=== PATIENT | female | born 1965 | race Caucasian/White ===

== ENCOUNTER 2017-01-17 09:45 | Inpatient (IN) ==
[2017-01-17] MEDS ORDERED: Albuterol 2.5 MG/3 ML NEBULIZER ONE (10:17)
[2017-01-17] MEDS ORDERED: CeFAZolin Pre 2,000 MG/100 ML 2,000 MG/100 ML BAG IVPB ONE (10:19)
[2017-01-17] MEDS ORDERED: Lidocaine -MPF 1% 2 ML VIAL ID ONE (10:19)
[2017-01-17] MEDS ORDERED: Albuterol 2.5 MG/3 ML NEBULIZER IH ONE (10:19)
[2017-01-17] MEDS ORDERED: Vancomycin 1,500 MG in D5% in Water 250 ML IVPB ONE (10:19)
[2017-01-17] MEDS ORDERED: Acetaminophen IV 1,000 MG/100 ML INFUS..BTL IVPB ONE (10:25)
[2017-01-17] MEDS ORDERED: Famotidine 20 MG/2 ML VIAL IVP ONE (10:25)
--- NOTE | 2017-01-17 10:29 | Anesthesia Evaluation PreOp ---
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 ( and ), Paresis (Left UE and LE weakness), Other (Multiple Sclerosis) Other Medical History: Denies Any Significant HX, Other (Obesity) Anesthesia History: No Prior Anesthetic Complications : No Alcohol Use: none Drug use: none Medications and Allergies Atorvastatin [Lipitor] 40 mg PO HS 08/07/16 [History] Clopidogrel [Plavix] 75 mg PO HS 08/07/16 [History] Isosorbide DInitrate [Isosorbide Dinitrate] 30 mg PO DAILY 10/24/16 [History] Metoprolol [Lopressor] 25 mg PO DAILY 10/24/16 [History] traZODone [TraZODone] 50 mg PO DAILY 10/24/16 [History] SUMAtriptan [Imitrex] 25 mg PO Q2H #20 tablet 10/29/16 [Rx] OxyCODONE/APAP 5/325 [Percocet 5/325 MG] 1 each PO Q6HR PRN #7 tablet 11/08/16 [ Rx] Allergies meperidine [From Demerol] Adverse Reaction (Verified 12/14/16 17:44) Vomiting - Meds/Allergy Pre-op Review Medications Reviewed: Yes Allergies Reviewed: Yes Beta Blockers on Current Med List: Yes (none for 1 week) Anesthesia Results - Labs Laboratory Tests 01/02/17 01/02/17 09:07 09:07 Hgb 11.8 Hct 38.4 Plt Count 426 H Sodium 138 Potassium 4.0 BUN 10 Creatinine 0.84 - Imaging EKG: report reviewed (SR) Additional studies: ECHO EF60% Stress Test Negative Anesthesia Exam O2 Sat Height 1.64 m Height 1.64 m Weight 107.048 kg Weight 107.048 kg O2 Sat by Pulse Oximetry 97 Vital Signs Temp Pulse Resp BP Pulse Ox 98.3 F 57 18 178/77 97 01/17/17 10:09 01/17/17 10:09 01/17/17 10:09 01/17/17 10:09 01/17/17 10:09 Height: 5'5 Weight: 236 lbs NPO (# of Hours): MN Pain Scale: 0 - HEENT Pupil (Motor): Pupils equal, EOMI Mallampati: III Teeth: Normal Oral Opening: Less than or equal to 3 - MACHINE HEEL SEAT FITTER LOC: Oriented MACHINE HEEL SEAT FITTER Motor: Normal RUE, Normal LUE, Normal RLE, Normal LLE, Normal Face MACHINE HEEL SEAT FITTER Sensory: Normal: RUE, LUE, RLE, LLE, Face - Cardiac Rhythm: Regular Murmur: None JVD: No Carotid Bruit: No - Pulmonary Breath Sounds: bilateral Clear Respiratory Effort: Symmetrical Anesthesia Assess/Plan ASA Score: 3 (CAD CVA Obesity) Modified [place] Scale for Level of Consciousness: Cooperative, oriented, and tranquil Anesthetic Plan: General Monitoring Plan: A-Line Recovery Plan: PACU (Discussed GA, Ingrid, agrees to proceed)
[2017-01-17] MEDS ORDERED: Ringers Solution, Lactated 1,000 ML IVC SCH (10:30)
--- NOTE | 2017-01-17 11:26 | History & Physical Report ---
Date of Encounter: 01/17/17 Time of Encounter: 11:15 24 Hour HP Update - Instructions Instructions: If the History and Physical is less than 30 days old and was completed prior to A.M. admission and or procedure and has NOT been updated on calendar day of procedure please complete this update prior to performing procedure. - Update Patient reports changes in Medical Condition: No Changes in examination, assessment, or condition: No Changes in Medication: No Preop tests/diagnostics Reviewed: Yes Surgery Remains Indicated: Yes Consent for Planned Operative Procedure(s) Verified: Yes - Pre-Operative Checklist Preoperative Checklist Indicated: Yes Prophylactic Antibiotic Ordered: Yes (vancomycin due to mrsa risk) Home Medications Include Beta Amanda: No (patient reports that she stopped her beta amanda on 01/10/17.) Beta Amanda Taken Today (Day of Surgery): No Beta Amanda Taken Yesterday (Day Prior to Surgery): No Is VTE Prophylaxis Indicated?: Yes - Attending Attestation Patient has bradycardia with HR <60. Beat amanda held due to this.
[2017-01-17] MEDS ORDERED: *HR* Midazolam HCl 2 MG/2 ML VIAL ONE (12:13)
[2017-01-17] MEDS ORDERED: *HR* FentaNYL (PF) 100 MCG/2 ML VIAL ONE ×2 (12:13→14:05)
[2017-01-17] MEDS ORDERED: Heparin 1,000 UNITS/500 mL NS 500 ML ONE ×2 (12:13→12:23)
[2017-01-17] MEDS ORDERED: Lidocaine -MPF 2% 2 ML VIAL ONE (12:13)
[2017-01-17] MEDS ORDERED: *HR* Propofol 200 MG/20 ML VIAL IVP ONE (12:13)
[2017-01-17] MEDS ORDERED: *HR* Rocuronium Bromide 50 MG/5 ML VIAL ONE ×2 (12:13→14:27)
[2017-01-17] MEDS ORDERED: Lidocaine -MPF 4% 5 ML AMPUL ONE (12:13)
[2017-01-17] MEDS ORDERED: Dexmedetomidine HCl 200 MCG/50 ML MLS IVC ONE (12:16)
[2017-01-17] MEDS ORDERED: NiCARdipine 2.5 MG/10 ML Syringe IVPB ONE (12:17)
[2017-01-17] MEDS ORDERED: Protamine Sulfate 50 MG/5 ML VIAL IVP ONE (12:22)
[2017-01-17] MEDS ORDERED: *HR* Phenylephrine 10 MG/ML VIAL ONE (12:23)
[2017-01-17] MEDS ORDERED: Ondansetron 4 MG/2 ML VIAL ONE (13:49)
[2017-01-17] MEDS ORDERED: Dexamethasone 4 MG/ML VIAL ONE (13:49)
[2017-01-17] MEDS ORDERED: Esmolol 100 MG/10 ML VIAL IVP ONE (14:20)
[2017-01-17] MEDS ORDERED: *HR* Heparin 5,000 UNIT/ML VIAL ONE ×2 (14:21→15:12)
[2017-01-17] MEDS ORDERED: *HR* Promethazine 25 MG/ML VIAL IVP PRN (14:40)
[2017-01-17] MEDS ORDERED: *HR* Labetalol 100 MG/20 ML MDV IVP PRN (14:40)
[2017-01-17] MEDS ORDERED: *HR* HYDROmorphone (PF) 1 MG/ML SYRINGE IVP PRN (14:40)
--- NOTE | 2017-01-17 14:43 | Anesthesia Procedures ---
Date of Encounter: 01/17/17 Time of Encounter: 13:00 Procedures: Anesthesia - Arterial Line Consent obtained: written consent Time out performed: Yes Sedation: Versed (mg): 2 Sedation: Fentanyl (mcg): 100 Supplemental Oxygen via Nasal Cannula (L/min): 2 Local Anesthetic: Lidocaine 1% Amount of Anesthetic used (mls): 1 Size (Gauge): 20 Length (inches): 1 3/4 Technique Used: sterile prep, guide wire technique, direct puncture technique Post-Procedure: line taped into place, dry sterile dressing placed Patient tolerated procedure: well, no complications Complications: none Site: Radial L Vitals: VSS
[2017-01-17] MEDS ORDERED: Neostigmine Methylsulfate 3 MG/3 ML SYRINGE ONE (15:38)
[2017-01-17] MEDS ORDERED: *HR* Labetalol 20 MG/4 ML SYRINGE IVP PRN (17:07)
[2017-01-17] MEDS ORDERED: Ondansetron 4 MG/2 ML VIAL IVP PRN (17:07)
[2017-01-17] MEDS ORDERED: Naloxone 0.4 MG/ML INJ IVP PRN (17:07)
[2017-01-17] MEDS ORDERED: *HR* HYDROcodone/Acet 5/325 mg TABLET PO PRN (17:07)
[2017-01-17] MEDS ORDERED: *HR* OxyCODONE Immed Rel 5 MG TABLET PO PRN (17:07)
[2017-01-17] MEDS ORDERED: Furosemide 20 MG TABLET PO PRN (17:07)
[2017-01-17] MEDS ORDERED: Acetaminophen 325 MG TABLET PO PRN (17:07)
--- NOTE | 2017-01-17 17:17 | Anesthesia Evaluation Post Op ---
Date of Encounter: 01/17/17 Time of Encounter: 16:50 - Vital Signs Vital Signs: Vital Signs/O2 Sat, Most Current Temp Pulse Resp BP Pulse Ox 97.5 F L 52 16 125/62 99 01/17/17 17:05 01/17/17 17:05 01/17/17 17:05 01/17/17 17:05 01/17/17 17:05 - Lungs Lungs: Clear Ascult./Percussion - Airway Airway: Non-obstructed - Cardiovascular Regular Rate - Mental Status Mental Status: Alert & Oriented, Answers Appropriately - Pain Pain Scale: 3 Pain Scale used: Numeric (1 - 10) - Nausea Vomiting Nausea Vomiting: Not Present - Hydration Hydration: Ice chips, Has not voided - Discharge PostOp Status: Transfer Patient to floor
[2017-01-17] MEDS: *HR* Metoprolol 5 MG/5 ML VIAL IVP SCH ×2 (17:28→23:46)
[2017-01-17] MEDS ORDERED: *HR* Heparin 5,000 UNIT/ML VIAL SQ SCH (18:00)
[2017-01-17] MEDS: ceFAZolin 2,000 MG in D5% in Water 100 ML IVPB SCH (18:03)
--- NOTE | 2017-01-17 18:15 | Operative Note ---
Date of procedure: 01/17/17 Pre-op diagnosis: 80-99% Left internal carotid artery stenosis Post-op diagnosis: same Procedure: Left carotid endarterectomy with hemashield patch angioplasty Complications: None Anesthesia: KINDRAA Surgeon: Reginald Peña Estimated blood loss (cc): 100 Specimen: Left carotid plaque Condition: stable Disposition: PACU Procedure in Detail: Indications: The patient is a 51 year old female with multiple medical comorbidities who was found to have a right internal carotid artery occlusion and an 80-99% left internal carotid artery stenosis. The patient has had prior cereborvascular accidents. A left carotid endarterectomy was recommended to reduce her risk of future cerebrovascular accidents. Procedure: The patient was identified in the preoperative area. The risks, benefits, and alternatives of the procedure were discussed and all questions were answered. The patient was then taken to the operating room and placed in supine position on the operating table. After induction of general endotracheal anesthesia, the patient was cleaned and draped in normal sterile fashion. A longitudinal incision was made anterior to the left sternocleidomastoid muscle. Hemostasis was obtained via electrocautery. Through a process of blunt , sharp, and electrocautery dissection, the platysma was traversed. The jugular vein was identified. The facial vein was clamped, divided, tied off with a 2-0 silk suture ligature. The jugular vein was retracted, exposing the carotid bifurcation. Patient received 3000 units of heparin intravenously at this time. Proximal dissection of the common and external carotid arteries were performed circumferentially. Dissection of the internal carotid was performed circumferentially. Vessels loops were passed around the internal and external carotid and an umbilical tape was passed from the common carotid artery. The patient received additional 2000 units of heparin intravenously. Additional heparin was given during the case to maintain adequate anticoagulation. After waiting adequate time for the heparin to circulate, the vessels were occluded. A longitudinal arteriotomy was made into the common carotid artery extending into the internal carotid beyond the plaque. The carotid artery above and below the plaque was inspected and noted to be free of debris. A shunt was placed into the internal carotid and backbled into the wound. It was then inserted into the common carotid artery in the usual fashion. Flow through the shunt was confirmed. A dental [place] was used to perform a standard endarterectomy. Proximal and distal endpoints were inspected. No elevated flaps were noted. A Hemashield patch was cut to fit the defect and sutured in place with running 6 -0 Prolene. Prior to complete the patch closure, the shunt was clamped twice, divided between the clamps and removed. Each vessel was flushed and then reoccluded. Heparinized saline was infused into the lumen. The patch was completed. Flow was restored in the external carotid artery, followed the common carotid artery, lastly the internal carotid artery was opened. A low resistance arterialized signal was present within the internal carotid artery beyond the patch. Thrombin and Gelfoam were used to aid in hemostasis. Meticulous hemostasis was obtained throughout the wound with electrocautery. Platelet rich and platelet poor plasma were infused into the wounds. The sternocleidomastoid was reapproximated with interrupted 3-0 Vicryl. Platelet rich and platelet poor plasma were infused into the wound. A TLS drain was brought through a separate stab incision and sutured in place with 0 silk suture. The platysma was reapproximated with running 3-0 Vicryl. Local anesthetic was infused in the skin. A 3-0 Monocryl was used to reapproximate the skin. Sterile dressing was applied. The patient was extubated, taken to the recovery room in stable condition.
--- NOTE | 2017-01-17 18:23 | Discharge Summary ---
<Kenneth Mercado - Last Filed: 01/18/17 09:16> Date of Encounter: 01/18/17 Time of Encounter: 09:17 - Discharge Diagnosis (1) Carotid stenosis, bilateral Status: Chronic - Discharge Medications Prescriptions: OxyCODONE/APAP 5/325 [Percocet 5/325 MG] 1 each PO Q4HR PRN #30 tablet PRN Reason: postoperative pain Home Medications: Atorvastatin [Lipitor] 40 mg PO HS 08/07/16 [History] Clopidogrel [Plavix] 75 mg PO HS 08/07/16 [History] Metoprolol [Lopressor] 25 mg PO BID 10/24/16 [History] traZODone [TraZODone] 50 mg PO HS 10/24/16 [History] Aspirin [Lo-Dose Aspirin EC] 81 mg PO DAILY 01/17/17 [History] Furosemide [Lasix] 10 - 20 mg PO DAILY PRN 01/17/17 [History] Lisinopril [Zestril] 10 mg PO DAILY 01/17/17 [History] Lisinopril [Zestril] 20 mg PO HS 01/17/17 [History] OxyCODONE/APAP 5/325 [Percocet 5/325 MG] 1 each PO Q4HR PRN #30 tablet 01/17/17 [Rx] Tizanidine HCl 2 mg PO HS 01/17/17 [History] Allergies/Adverse Reactions: Allergies meperidine [From Demerol] Adverse Reaction (Verified 01/21/17 08:53) Vomiting Date of admission: 01/17/17 16:58 Primary care physician: Juve Sarkar MD Consults: None - Patient Status Disposition: Home, Self-Care Condition: Good Functional capacity at discharge: independent ambulation Overall status at discharge: patient is progressing back to baseline - Discharge Instructions Instructions: Oxycodone/Acetaminophen (By mouth), Cigarette Smoking and Your Health (GEN), Carotid Endarterectomy (DC), Peripheral Vascular Disorders (DC) Follow Up With: Reginald Epperson MD [Partnered Physician] - (Follow-up in [address] FOFANA OFFICE SHOULD CALL YOU WITH AN APPOINTMENT. ) Juve Sarkar MD [Primary Care Provider] - (YOUR PCP SHOULD CALL YOU WITH AN APPOINTMENT. ) Additional Instructions: MAY REMOVE BANDAGE 5/14/17. MAY SHOWER 01/19/17. WASH WOUND GENTLY AND PAT TO DRY. CALL DR. EPPERSON AT [phone] WITH QUESTIONS OR CONCERNS. - Diet and Activity Activity: increase activity as tolerated Diet: low fat, low cholesterol - Hospital Course Hospital course: Ms. Hinton is a 51 year old female Resident history of strokes. She had significant left carotid stenosis. She underwent a left carotid endarterectomy by Dr. Epperson yesterday. The patient is doing well on postoperative day #1. She will be prepared to be discharged to go home later this morning. - Time Spent with Patient Total time spent providing and/or coordinating discharge services: Exam Vital Signs, Last 4 Hours Temp Pulse Resp BP Pulse Ox 01/18/17 07:29 98.2 F 60 17 135/71 96 01/18/17 05:35 97.7 F 63 17 128/65 100 General: Present: Conversant, No Apparent Distress Neck: Absent: JVD Cardiac: Present: Reg Rate and Rhythm Lungs: Present: Normal Breath Sounds Neuro: Present: Alert and responsive Vascular: Present: Surgical incisions (Surgical incisions are clean and dry.) <Reginald Epperson - Last Filed: 01/24/17 07:07> Date of Encounter: 01/18/17 - Discharge Diagnosis (1) Carotid stenosis, bilateral Priority: Primary Status: Chronic Comments: The patient has a history of a right internal carotid artery occlusion and a left internal carotid artery stenosis. She has had prior cerebrovascular accidents. The patient underwent a left carotid endarterectomy on 01/17/17 and tolerated the procedure well. She was discharged on postoperative day #1 without complication. (2) Essential hypertension Priority: Secondary Status: Chronic Comments: She was counseled regarding atherosclerotic risk factor reduction. (3) COPD (chronic obstructive pulmonary disease) Priority: Secondary Status: Chronic Qualifiers: COPD type: emphysema Emphysema type: panlobular Qualified Code(s): J43.1 - Panlobular emphysema (4) Mixed hyperlipidemia Priority: Secondary Status: Chronic (5) CAD (coronary artery disease) Priority: Secondary Status: Chronic Qualifiers: Coronary Disease-Associated Artery/Lesion type: [place] artery [place] vs. transplanted heart: [place] heart Associated angina: with stable angina Qualified Code(s): I25.118 - Atherosclerotic heart disease of [place] coronary artery with other forms of angina pectoris (6) Morbid obesity due to excess calories Priority: Secondary Status: Chronic Date of admission: 01/17/17 16:58 Primary care physician: Juve Sarkar MD Procedure(s) Performed: Left carotid endarterectomy Discharging clinician: Reginald Epperson Anticipated date of discharge: 01/18/17 - Hospital Course Hospital course: Ms. Hinton is a 51 year old female - Time Spent with Patient Total time spent providing and/or coordinating discharge services: Exam Vital Signs, Last 4 Hours Temp Pulse Resp BP Pulse Ox 01/17/17 18:07 55 18 127/66 99 01/17/17 17:45 51 18 120/63 99 01/17/17 17:30 57 16 128/72 99 01/17/17 17:15 49 16 129/64 01/17/17 17:07 52 01/17/17 17:05 97.5 F L 52 16 125/62 99 01/17/17 16:46 97.6 F 51 16 128/67 98 01/17/17 16:36 97.6 F 49 16 129/64 96 01/17/17 16:26 53 16 127/66 99 01/17/17 16:16 52 16 136/80 96 01/17/17 16:06 98.0 F 54 16 140/78 100 - VTE Documentation of Mechanical Device: Intermittent pneumatic compression device
[2017-01-17] MEDS ORDERED: traZODone 50 MG TABLET PO SCH (21:00)
[2017-01-17] MEDS ORDERED: tiZANidine 4 MG TABLET PO SCH (21:00)
[2017-01-18] MEDS ORDERED: Vancomycin 1,500 MG in D5% in Water 250 ML IVPB ONE (00:30)
[2017-01-18] MEDS: ceFAZolin 2,000 MG in D5% in Water 100 ML IVPB SCH (01:43)
[2017-01-18] MEDS: *HR* Metoprolol 5 MG/5 ML VIAL IVP SCH (05:30)
[2017-01-18] MEDS ORDERED: *HR* Heparin 5,000 UNIT/ML VIAL SQ SCH (06:00)
[2017-01-18 07:32] VITALS: BP 135/71
[2017-01-18] MEDS ORDERED: Aspirin Enteric Coated 81 MG Tablet PO SCH (09:00)
--- NOTE | 2017-01-18 09:16 | Vascular/[facility] Progress Note ---
Date of Encounter: 01/18/17 Time of Encounter: 09:14 - Assessment and plan (1) Carotid stenosis, bilateral Current Visit: Yes Status: Chronic Status post successful left carotid endarterectomy. - Subjective Interval history: Patient is status post left carotid endarterectomy by Dr. Peña yesterday. She had an uneventful night. She is doing well. She will be discharged to home later today. Vital Signs, Last 4 Hours Temp Pulse Resp BP Pulse Ox 01/18/17 07:29 98.2 F 60 17 135/71 96 01/18/17 05:35 97.7 F 63 17 128/65 100 - Physical Examination General: Present: Conversant, No Apparent Distress HEENT: Present: Atraumatic, Normocephaly, Trachea midline, Pupils equal Cardiac: Present: Reg Rate and Rhythm Lungs: Present: Normal Breath Sounds Neuro: Present: Alert and responsive, Cranial nerves grossly intact, Other ( Mild left-sided weakness.chronic ) Vascular: Present: Surgical incisions (Surgical incision is clean and dry.) - VTE Documentation of Mechanical Device: Intermittent pneumatic compression device Consult Discharge Plan - Plan Additional Instructions: MAY REMOVE BANDAGE 01/19/17. MAY SHOWER 01/19/17. WASH WOUND GENTLY AND PAT TO DRY. CALL DR. PEÑA AT [phone] WITH QUESTIONS OR CONCERNS. Referrals: Reginald Peña MD [Partnered Physician] - (Follow-up in 4 weeks.) Juve Sarkar MD [Primary Care Provider] - Prescriptions: OxyCODONE/APAP 5/325 [Percocet 5/325 MG] 1 each PO Q4HR PRN #30 tablet PRN Reason: postoperative pain
[2017-01-18] MEDS ORDERED: Lisinopril 20 MG TABLET PO SCH (21:00)
== END 2017-01-18 11:25 | disposition home or self-care (01) | DRG 24 ==
LOC: SAMDAY 09:45 → 2NNU 16:58
PROVIDERS: ADMIT Surgery; ATTEND Surgery

== ENCOUNTER 2019-05-13 18:10 | Observation (INO) ==
[2019-05-13] MEDS ORDERED: Isovue-370 500 ML BOTTLE IVP ONE ×2 (18:41→19:11)
--- NOTE | 2019-05-13 19:09 | Emergency Department Note ---
Disposition Clinical Impression: Cerebrovascular accident Qualifiers: CVA mechanism: unspecified Qualified Code(s): I63.9 - Cerebral infarction, unspecified Disposition: Admitted As Inpatient Condition: Fair Referrals: Juve Sarkar MD [Primary Care Provider] - Forms: ED Satisfaction Letter Time of Disposition: 21:42 General Adult HPI - General Chief complaint: ED Neuro Symptoms/Deficit Stated complaint: neuro Time Seen by Provider: 05/13/19 18:20 Source: patient Limitations: no limitations Nursing Notes Reviewed: Yes Vital Signs Reviewed: Yes - History of Present Illness HPI Narrative: Patient had a history of a stroke 3 or 4 years ago and is difficulty with residual left-sided weakness and also has a history of left-sided carotid endarterectomy and a CABG operation and when she woke up this morning she was disoriented as to where she was, could not remember his son's name, had slurred speech all day and inability to ambulate. Does have chronic left sided facial decreased sensation which is not new. No medications specifically use for the symptoms. She did fall over the weekend when her legs gave out but she did not hit her head. She does use Plavix. She denies any head pain. Has chest pain but this pain is chronic and not new. She denies any new numbness or weakness of the extremities, drooping of the face but does have the slurred speech and confusion. Social history: Nonsmoker, no alcohol. Is here with her daughter Pain Scale: 0 - Related Data Home Medications Medication Instructions Recorded Confirmed Atorvastatin [Lipitor] 40 mg PO DAILY 08/07/16 05/13/19 Aspirin [Lo-Dose Aspirin EC] 81 mg PO DAILY 05/18/17 05/13/19 Clopidogrel [Plavix] 75 mg PO DAILY 05/18/17 05/13/19 Acetaminophen [Tylenol] 325 mg PO BID PRN 11/03/18 05/13/19 Benzonatate 100 mg PO TID PRN 11/03/18 05/13/19 Cetirizine HCl [24Hour Allergy] 10 mg PO DAILY 11/03/18 05/13/19 DULoxetine [Cymbalta] 30 mg PO DAILY 11/03/18 05/13/19 Ferrous Sulfate 325 mg PO DAILY 11/03/18 05/13/19 Metoprolol [Lopressor] 25 mg PO BID 11/03/18 05/13/19 OxyCODONE/APAP 5/325 [Percocet 1 tab PO BID PRN 11/03/18 05/13/19 5/325 MG] Tizanidine HCl 2 mg PO BID PRN 11/03/18 05/13/19 hydrOXYzine pamoate [Hydroxyzine 25 mg PO Q8H PRN 11/03/18 05/13/19 Pamoate] traZODone [TraZODone] 50 mg PO HS PRN 11/03/18 05/13/19 metFORMIN [Glucophage] 500 mg PO DAILY 05/13/19 05/13/19 Allergies Allergy/AdvReac Type Severity Reaction Status Date / Time meperidine [From Demerol] AdvReac nausea/vomi Verified 05/13/19 20:58 ting Review of Systems: Constitutional: No fever Vision: + blurred vision ENT: No rhinorrhea Respiratory: No cough Allergic: No allergies : No blood in urine GI: No blood in stool Hematologic: + bruising Dermatologic: No skin rash Musculoskeletal: No pain in the extremities Neuro: No new numbness of the extremities Past Medical History - Past Medical History Medical history: Reports: COPD, coronary artery disease, CVA, diabetes, hyperlipidemia, hypertension, migraine Surgical history: Reports: coronary bypass (CABG), other Psychiatric history: Reports: no psych history JUVENILE JUSTICE OFFICER history: Reports: no JUV[employer]ILE JUSTICE OFFICER history, bilateral tubal ligation - Social History Smoking Status: Never smoker Smokeless Tobacco Status: No Alcohol use: Reports: none Drug use: Reports: none Physical Exam CONSTITUTIONAL: Well-appearing; well-nourished; A&O X3, in no apparent distress HEAD: Normocephalic; atraumatic. EYES: PERRL, EOMI, no scleral icterus NOSE: The nose is normal in appearance without rhinorrhea NECK: Supple without rigidity, no HUMBERTO RESP: Normal chest excursion with respiration; breath sounds clear and equal bilaterally; no wheezes, rhonchi, or rales CARD: Regular rhythm, without murmurs, rub or gallop ABD: Non-distended; non-tender, soft, without rigidity, rebound or guarding SKIN: Normal for age and race; warm and dry; no apparent lesions, no rash NEUROLOGICAL: Patient is alert and oriented times three. Cranial nerves III- XII are intact. Sensory and motor functions are intact. Strength is 5/5 for flexion and extension in all 4 extremities. Finger to nose testing is equal and normal bilaterally. - General Limitations: no limitations General appearance: alert Course Vital Signs Temperature 98.9 F 05/13/19 18:15 Pulse Rate 97 05/13/19 18:15 Respiratory Rate 16 05/13/19 18:15 Blood Pressure 193/114 05/13/19 18:15 O2 Sat by Pulse Oximetry 97 05/13/19 18:15 Temperature 98.9 F 05/13/19 21:08 Pulse Rate 71 05/13/19 21:08 Respiratory Rate 20 05/13/19 21:08 Blood Pressure 159/82 05/13/19 21:08 O2 Sat by Pulse Oximetry 97 05/13/19 21:08 Oxygen Delivery Oxygen Delivery Room Air Medical Decision Making - MDM Narrative Medical decision making narrative: Patient will have a head CT and CTA head and neck and her symptoms are most consistent with acute stroke. She is not a thrombolytic candidate due to the fact that last known normal was last night. Patient has a history of stroke. Being on Plavix will also make sure she does not have any head bleed. Troponin will be done because she has chest pain however symptoms are not specifically consistent with acute coronary syndrome. I did review her EKG showing normal sinus rhythm with a rate of 86 and this does show isolated T-wave inversion in lead aVL and this was compared to a EKG from October which also shows this T- wave inversion in lead aVL so this is not an acute change. The patient will be admitted. Results pending. 1910 - Medical Records Medical records reviewed: Yes I reviewed the patient's medical records. - Lab Data Lab results reviewed: Yes I reviewed the patient's lab results. Result diagrams: 05/13/19 19:19 05/13/19 19:19 Lab Results 05/13/19 05/13/19 05/13/19 Range/Units 18:25 19:19 19:19 WBC 12.3 H (4.3-11.1) K/mcL RBC 4.85 (3.82-4.97) M/mcL Hgb 14.1 (11.5-15.4) g/dL Hct 42.6 (35.3-44.9) % MCV 87.8 (83.0-100.0) fL MCH 29.1 (28.0-33.3) pg MCHC 33.1 (31.6-35.5) g/dL RDW 13.2 (11.5-14.5) % Plt Count 391 (140-400) K/mcL MPV 9.7 (9.4-12.4) fL Sodium 139 (136-145) mEq/L Potassium 3.2 L (3.5-5.1) mEq/L Chloride 103 (98-107) mEq/L Carbon Dioxide 24 (23-29) mEq/L BUN 15 (6-20) mg/dL Creatinine 0.84 (0.60-1.20) mg/dL Est GFR ( Amer) > 60 (> 60) Est GFR (Non-Af Amer) > 60 (> 60) BUN/Creatinine Ratio 18 (6-26) Glucose 122 H (70-105) mg/dL POC Glucose 124 H (70-99) mg/dL Calculated Osmolality 290 (280-300) Calcium 9.9 (8.6-10.3) mg/dL Troponin I < 0.03 (< 0.04) ng/mL - Radiology Data Radiology results reviewed: Yes I reviewed the patient's radiology results. Critical Care Time Critical Care Time: Yes Total Critical Care Time: 30 Attestation: 30 minutes of critical care time was spent with the patient with acute stroke with discussion with the hospitalist, discussed with radiologist, noncontrast as well as CTA head and neck and correlation with past symptoms and performance of stroke scale NIH Stroke Scale - Level of Consciousness LOC: Alert - LOC Questions LOC Questions: Answers both correctly - LOC Commands LOC Commands: Performs both correctly - Best Gaze Best Gaze: Normal - Visual Visual: No visual loss - Facial Palsy Facial Palsy: Normal - Motor Arms Motor Arm-Left: No drift for 10 seconds Motor Arm-Right: No drift for 10 seconds - Motor Legs Motor Leg-Left: No drift for 5 seconds Motor Leg-Right: No drift for 5 seconds - Limb Ataxia Limb Ataxia: Normal, No Ataxia - Sensory Sensory: Mild to moderate loss, "not as sharp" - Best Language Best Language: Mild to moderate aphasia. Examiner can identify picture from response - Dysarthria Dysarthria: Mild, slurs some words - Extinction and Inattention Extinction and Inattention: Normal - NIHSS Total Score NIHSS Total Score: 3
[2019-05-13 19:47] LABS: Hematocrit 42.6 % (35.3-44.9); Hemoglobin 14.1 g/dL (11.5-15.4); Mean Corpuscular HGB Conc 33.1 g/dL (31.6-35.5); Mean Corpuscular Hemoglobin 29.1 pg (28.0-33.3); Mean Corpuscular Volume 87.8 fL (83.0-100.0); Mean Platelet Volume 9.7 fL (9.4-12.4); Platelet Count 391 K/mcL (140-400); Red Blood Count 4.85 M/mcL (3.82-4.97); Red Cell Distribution Width 13.2 % (11.5-14.5); White Blood Count 12.3 K/mcL (4.3-11.1)
[2019-05-13 20:03] LABS: BUN/Creatinine Ratio 18 (6-26); Blood Urea Nitrogen 15 mg/dL (6-20); Calcium 9.9 mg/dL (8.6-10.3); Carbon Dioxide 24 mEq/L (23-29); Chloride 103 mEq/L (98-107); Glucose 122 mg/dL (70-105); Osmolality,Calculated 290 (280-300); Potassium 3.2 mEq/L (3.5-5.1); Sodium 139 mEq/L (136-145); Troponin I < 0.03 ng/mL (< 0.04); eGFR For African Americans > 60 (> 60); eGFR For Non-African Americans > 60 (> 60)
[2019-05-14] MEDS ORDERED: traZODone 50 MG TABLET PO PRN (03:00)
[2019-05-14] MEDS ORDERED: Naloxone 0.4 MG/ML INJ IVP PRN (03:01)
[2019-05-14] MEDS ORDERED: *HR* Dextrose 50 % in Water (Syg) 50 ML SYRINGE IVP PRN (03:06)
[2019-05-14] MEDS ORDERED: D5% in Water 1,000 ML IVC PRN (03:06)
[2019-05-14] MEDS ORDERED: Dextrose Gel 15 GM/37.5 ML TUBE PO PRN ×2 (03:06)
--- NOTE | 2019-05-14 04:20 | Internal Med History&Physical ---
Date of Encounter: 05/14/19 Time of Encounter: 02:30 Internal Medicine - H&P: HPI Chief complaint: Stroke like symptoms Admitted From: Home Plans for Post Hospital Care: Home History of present illness: Ms. Hinton is a 53 year old female with past medical history significant for previous CVA with left-sided deficits, carotid artery stenosis, CAD with CABG, hypertension, hyperlipidemia, COPD, diabetes, and migraine who presents for complaints of stroke like symptoms that started when she woke up around 8 AM on 05/13/2019. Reports when she woke up she was disoriented, had slurred speech, and lightheadedness. States symptoms improved after couple of hours but then also noticed that she was having some aphasia and continued slurred speech. Also reports chest pain but states it is at her baseline chronic chest pain with no changes. Reports for the past week she has been feeling "not herself" and saw her PCP who is planning on obtaining a MRI of her head for further evaluation. Also reports having a mechanical fall from her left leg giving out on her last weekend but denies any injury, striking her head, or losing consciousness. ER reported EKG as normal sinus rhythm with T-wave inversion in aVL which was present on previous EKG from October. ER reported she was not a thrombolytic candidate due to the fact that her last known well was the night before she woke up with these symptoms. 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 Patient had carotid duplex completed last month which showed right proximal ICA totally occluded and left proximal ICA with moderate 40-59% stenosis for which she has reportedly followed up with vascular surgery who is planning to monitor and reassess in 6 months. Patient was admitted in October 2018 for chest pain and had workup including a stress test that was negative for ischemia or infarct and echocardiogram with 60% EF. Currently only reports sensation loss at baseline from previous CVA deficits and daughter at bedside still appreciates some minor slurred speech but reports it is improved. Currently denies any headache, shortness of breath, abdominal pain, nausea, bowel or bladder changes. Patient reports checking her blood sugars regularly and they have been averaging in the 100s. Patient also reports following regularly with her PCP, neurology, cardiology, and vascular. Past Med Surg Social Fam HX - Past Medical History Medical history: COPD, coronary artery disease, CVA, diabetes, hyperlipidemia, hypertension, migraine Additional medical history: CAD,SVG to distal RCA,obesity,OA,moderate left stenosis,mild stenosis right,cartid artery stenosis Psychiatric history: no psych history - Past Surgical History Surgical History: coronary bypass (CABG), other Additional surgical history: Tubal Ligation - Social History Smoking Status: Never smoker Smokeless Tobacco Status: No Alcohol use: none Drug use: none - Family History Mother Living Status: Still Living Hx Family Cardiac Disorders: Yes Father Living Status: Hx Family Cardiac Disorders: Yes (massive MT) Hx Family Respiratory Disorders: No Hx Family Cancer: No Hx Family GI Disorders: No Hx Family Endocrine Disorder: No Hx Family Neuromuscular Disorders: No Hx Family Neurologic Disorders: No Hx Family HEENT Disorders: No Hx Family Autoimmune Disorders: No Internal Medicine - H&P: Meds Atorvastatin [Lipitor] 40 mg PO DAILY 08/07/16 [History] Aspirin [Lo-Dose Aspirin EC] 81 mg PO DAILY 05/18/17 [History] Clopidogrel [Plavix] 75 mg PO DAILY 05/18/17 [History] Acetaminophen [Tylenol] 325 mg PO BID PRN 11/03/18 [History] Benzonatate 100 mg PO TID PRN 11/03/18 [History] Cetirizine HCl [24Hour Allergy] 10 mg PO DAILY 11/03/18 [History] DULoxetine [Cymbalta] 30 mg PO DAILY 11/03/18 [History] Ferrous Sulfate 325 mg PO DAILY 11/03/18 [History] Metoprolol [Lopressor] 25 mg PO BID 11/03/18 [History] OxyCODONE/APAP 5/325 [Percocet 5/325 MG] 1 tab PO BID PRN 11/03/18 [History] Tizanidine HCl 2 mg PO BID PRN 11/03/18 [History] hydrOXYzine pamoate [Hydroxyzine Pamoate] 25 mg PO Q8H PRN 11/03/18 [History] traZODone [TraZODone] 50 mg PO HS PRN 11/03/18 [History] metFORMIN [Glucophage] 500 mg PO DAILY 05/13/19 [History] Allergy/AdvReac Type Severity Reaction Status Date / Time meperidine [From Demerol] AdvReac nausea/vomi Verified 05/13/19 20:58 ting All Systems PM: A 10-system review of systems was performed and is negative for pertinent findings except as documented above in the HPI. - Constitutional Vitals: Temp Pulse Resp BP Pulse Ox 98.1 F 85 16 168/73 96 05/14/19 04:05 05/14/19 04:05 05/14/19 04:05 05/14/19 04:05 05/14/19 04:05 Exam: General: Fully alert and oriented. Calm in no distress. Skin:Normal color, no rash, no lesions. HEENT:Pupils equal, round and reactive. Cardiovascular:Normal S1 & S2, no rubs, murmurs or gallops. No JVD. Pulse regular. Lungs:Normal breath sounds, no wheezes or crackles. Abdomen:Soft, non-tender, no rigidity. Extremities:No deformity, no edema or tenderness, no joint swelling or clubbing. Neurological:GCS 15. NIHSS 2 for sensation loss and dysarthria. Sensation loss at baseline from previous CVA deficits. Daughter at bedside still appreciates some minor slurred speech but improved. Pulses:Carotid and radial pulses normal +2. Rest of the physical exam is non contributory. Internal Med - H&P Results - Labs CBC & Chem 7: 05/13/19 19:19 05/13/19 19:19 Labs: Short CBC 05/13/19 Range/Units 19:19 WBC 12.3 H (4.3-11.1) K/mcL Hgb 14.1 (11.5-15.4) g/dL Hct 42.6 (35.3-44.9) % Plt Count 391 (140-400) K/mcL BMP 05/13/19 19:19 Sodium 139 Potassium 3.2 L Chloride 103 Carbon Dioxide 24 BUN 15 Creatinine 0.84 Glucose 122 H Calcium 9.9 Cardiac Enzymes 05/13/19 Range/Units 19:19 Troponin I < 0.03 (< 0.04) ng/mL - Impressions ITS Impressions Head CTA 05/13/19 18:41 IMPRESSION: Chronic appearing right frontoparietal lobe infarcts. No CT evidence of an acute infarct. 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 This could be confirmed with prior imaging and history. Attenuated but patent flow within the right MCA. Findings were discussed with Mike Tobin MD at 9:24 pm on 05/13/2019. D/ / Grover Blount MD / Grover Blount MD Interpreting Provider: Grover Blount MD Neck CTA 05/13/19 19:11 IMPRESSION: Chronic appearing right frontoparietal lobe infarcts. No CT evidence of an acute infarct. 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 This could be confirmed with prior imaging and history. Attenuated but patent flow within the right MCA. Findings were discussed with Mike Tobin MD at 9:24 pm on 05/13/2019. D/ / Grover Blount MD / Grover Blount MD Interpreting Provider: Grover Blount MD - Assessment and Plan (1) Stroke-like symptoms Current Visit: Yes Status: Acute Assessment and plan: Reports when she woke up around 8 am 05/13/2019 she was disoriented, had slurred speech, and lightheadedness. States symptoms improved after couple of hours but then also noticed that she was having some aphasia and continued slurred speech. Currently only reports sensation loss at baseline from previous CVA deficits and daughter at bedside still appreciates some minor slurred speech but reports it is improved. ER reported she was not a thrombolytic candidate due to the fact that her last known well was the night before she woke up with these symptoms. 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 Neuro checks ordered. PT, OT, ST consult ordered. MRI ordered. (2) Increased white blood cell count Current Visit: Yes Status: Acute Assessment and plan: Slightly increased at 12.3 No signs of infection. Repeat labs ordered. Qualifiers: Leukocytosis type: unspecified Qualified Code(s): D72.829 - Elevated white blood cell count, unspecified (3) Hypokalemia Current Visit: Yes Status: Acute Assessment and plan: Slightly decreased at 3.2 Replacement ordered. Repeat labs ordered. (4) Chest pain Current Visit: No Status: Chronic Assessment and plan: Reports chest pain at her chronic baseline. ER reported EKG as normal sinus rhythm with T-wave inversion in aVL which was present on previous EKG from October. Initial troponin in ER negative, will trend troponins. Patient was admitted in October 2018 for chest pain and had workup including a stress test that was negative for ischemia or infarct and echocardiogram with 60% EF. Qualifiers: Chest pain type: unspecified Qualified Code(s): R07.9 - Chest pain, unsp ecified (5) Diabetes mellitus Current Visit: Yes Status: Chronic Assessment and plan: Hold home diabetic medications. Sliding scale insulin ordered. Accu-Chek's ordered. Qualifiers: Qualified Code(s): E11.9 - Type 2 diabetes mellitus without complications - Time Spent With Patient Total time spent is greater than 50% in coordination of care (as documented) at patient's floor/unit and/or counseling patient:
[2019-05-14 04:38] LABS: Basophils # 0.1 K/mcL (0.0-0.2); Basophils % 0.7 %; Eosinophils # 0.1 K/mcL (0.0-0.6); Hematocrit 41.2 % (35.3-44.9); Hemoglobin 13.7 g/dL (11.5-15.4); Immature Granulocytes % 0.4 % (0-4); Lymphocytes # 3.8 K/mcL (0.6-4.6); Lymphocytes % 34.9 %; Mean Corpuscular HGB Conc 33.3 g/dL (31.6-35.5); Mean Corpuscular Hemoglobin 28.5 pg (28.0-33.3); Mean Corpuscular Volume 85.7 fL (83.0-100.0); Mean Platelet Volume 9.8 fL (9.4-12.4); Monocytes # 0.9 K/mcL (0.0-1.3); Monocytes % 7.9 %; Neutrophils # 5.9 K/mcL (1.6-8.9); Platelet Count 395 K/mcL (140-400); Red Blood Count 4.81 M/mcL (3.82-4.97); Red Cell Distribution Width 13.3 % (11.5-14.5); Segmented Neutrophils % 55.1 %; White Blood Count 10.8 K/mcL (4.3-11.1)
[2019-05-14 05:02] LABS: Estimated Average Glucose 163 mg/dl
[2019-05-14 05:06] LABS: Alanine Aminotransferase 22 Units/L (7-52); Albumin 4.1 g/dL (3.5-5.7); Albumin/Globulin Ratio 1.3 (1.1-2.2); Alkaline Phosphatase 58 Units/L (34-104); Aspartate Amino Transferase 24 Units/L (13-39); BUN/Creatinine Ratio 17 (6-26); Bilirubin,Total 0.4 mg/dL (0.3-1.0); Blood Urea Nitrogen 14 mg/dL (6-20); Calcium 9.3 mg/dL (8.6-10.3); Carbon Dioxide 25 mEq/L (23-29); Chloride 103 mEq/L (98-107); Chol/HDL Ratio 3.3 (0-4.9); Cholesterol 187 mg/dL (< 200); Globulin 3.1 g/dL (2.4-3.5); Glucose 144 mg/dL (70-105); HDL Cholesterol 56 mg/dL (40-59); LDL Cholesterol,Calculated 59 mg/dL (0-99); Osmolality,Calculated 289 (280-300); Potassium 3.4 mEq/L (3.5-5.1); Sodium 138 mEq/L (136-145); Total Protein 7.2 g/dL (6.4-8.9); Triglycerides 358 mg/dL (< 150); eGFR For African Americans > 60 (> 60); eGFR For Non-African Americans > 60 (> 60)
[2019-05-14 05:16] LABS: Prothrombin Time 11.1 Seconds (9.4-12.1)
[2019-05-14] MEDS: Insulin LISPRO 300 UNITS/3 ML VIAL SQ SCH ×2 (09:12→12:51)
[2019-05-14 11:19] VITALS: BP 143/82
--- NOTE | 2019-05-14 11:53 | Discharge Summary ---
<Mireya Appiah E - Last Filed: 05/14/19 13:53> Date of Encounter: 05/14/19 Time of Encounter: 09:15 - Discharge Diagnosis (1) Stroke-like symptoms Priority: Primary Status: Acute Assessment and Plan: Patient reported waking up yesterday disoriented with slurred speech and lightheadedness, improved after a few hours but still having aphasia and slurred speech She has decreased sensation from previous CVAs. She was on a candidate for thrombolytic therapy due to time frame CT head negative except for chronic appearing right frontotemporoparietal lobe infarcts MRI negative for any acute cranial abnormalities PT and OT of sign off on patient We will increase atorvastatin to 80 mg (2) Chest pain Priority: Primary Status: Chronic Assessment and Plan: Chronic chest pain at baseline Chronic T-wave inversions in aVL on EKG Initial troponins negative Qualifiers: Chest pain type: unspecified Qualified Code(s): R07.9 - Chest pain, unspecified (3) Increased white blood cell count Priority: Secondary Status: Acute Assessment and Plan: No signs of infection at this time Qualifiers: Leukocytosis type: unspecified Qualified Code(s): D72.829 - Elevated white blood cell count, unspecified (4) Hypokalemia Priority: Secondary Status: Acute Assessment and Plan: Slightly decreased at 3.2 Replacement ordered (5) Diabetes mellitus Priority: Secondary Status: Chronic Assessment and Plan: Patient was monitored on sliding scale insulin Qualifiers: Qualified Code(s): E11.9 - Type 2 diabetes mellitus without complications Hospital course: Ms. Hinton is a 53 year old female presented after approximately 1 day of altered mental status, slurred speech, decreased sensation. Patient has previous history of 8 CVAs. Patient slurred speech has decreased and she is left with occasional aphasia. Patient is back to her baseline strength coordination. Patient had negative CT and MRI for intracranial abnormalities except for chronic infarcts. Patient's lab show hypokalemia which was replaced, she also had chest pain which is chronic in nature and no changes on EKG from previous EKG in October. Patient's vitals were stable throughout stay. Patient's atorvastatin to be increased to 80 mg daily. Discharge discussed with: patient - Time Spent with Patient Total time spent providing and/or coordinating discharge services: - Discharge Medications Prescriptions: New Walker [Ultra-Light Rollator] 1 each MC DAILY #1 each Continued Clopidogrel [Plavix] 75 mg PO DAILY Aspirin [Lo-Dose Aspirin EC] 81 mg PO DAILY Cetirizine HCl [24Hour Allergy] 10 mg PO DAILY DULoxetine [Cymbalta] 30 mg PO DAILY hydrOXYzine pamoate [Hydroxyzine Pamoate] 25 mg PO Q8H PRN PRN Reason: Anxiety Metoprolol [Lopressor] 25 mg PO BID OxyCODONE/APAP 5/325 [Percocet 5/325 MG] 1 tab PO BID PRN PRN Reason: Pain Tizanidine HCl 2 mg PO BID PRN PRN Reason: Muscle Spasm Acetaminophen [Tylenol] 325 mg PO BID PRN PRN Reason: Pain Metformin HCl [Fortamet] 500 mg PO DAILY Amitriptyline [Elavil] 10 mg PO HS Changed Atorvastatin [Lipitor] 80 mg PO DAILY #30 tablet Home Medications: Aspirin [Lo-Dose Aspirin EC] 81 mg PO DAILY 05/18/17 [History] Clopidogrel [Plavix] 75 mg PO DAILY 05/18/17 [History] Acetaminophen [Tylenol] 325 mg PO BID PRN 11/03/18 [History] Cetirizine HCl [24Hour Allergy] 10 mg PO DAILY 11/03/18 [History] DULoxetine [Cymbalta] 30 mg PO DAILY 11/03/18 [History] Metoprolol [Lopressor] 25 mg PO BID 11/03/18 [History] OxyCODONE/APAP 5/325 [Percocet 5/325 MG] 1 tab PO BID PRN 11/03/18 [History] Tizanidine HCl 2 mg PO BID PRN 11/03/18 [History] hydrOXYzine pamoate [Hydroxyzine Pamoate] 25 mg PO Q8H PRN 11/03/18 [History] Amitriptyline [Elavil] 10 mg PO HS 05/14/19 [History] Atorvastatin [Lipitor] 80 mg PO DAILY #30 tablet 05/14/19 [Rx] Metformin HCl [Fortamet] 500 mg PO DAILY 05/14/19 [History] Walker [Ultra-Light Rollator] 1 each MC DAILY #1 each 05/14/19 [Rx] Allergies/Adverse Reactions: Allergy/AdvReac Type Severity Reaction Status Date / Time meperidine [From Demerol] AdvReac nausea/vomi Verified 05/13/19 20:58 ting Date of admission: 05/13/19 22:11 Primary care physician: Juve Sarkar MD Consults: 05/14/19 03:03 Consult to Occupational Therapy [CONS] Routine Comment: Evaluate, develop and implement POC Reason for Consult: Presents for new stroke like symptoms including slurred speech, confusion, and aphasia. History of CVA with left sided deficits. Please evaluate and treat. Does patient have active BEDREST order?: No Is patient medically & hemodynamically stable?: Yes Consult to Physical Therapy [CONS] Routine Comment: Evaluate, develop and implement POC Reason for Consult: Presents for new stroke like symptoms including slurred speech, confusion, and aphasia. History of CVA with left sided deficits. Please evaluate and treat. Does patient have active BEDREST order?: No Is patient medically & hemodynamically stable?: Yes Discharging clinician: Jourdan Head Anticipated date of discharge: 05/14/19 - Constitutional Vitals: Temp Pulse Resp BP Pulse Ox 98.0 F 70 16 143/82 90 05/14/19 11:11 05/14/19 11:11 05/14/19 11:11 05/14/19 11:11 05/14/19 11:11 Exam: General: AAO 3, no acute distress, answers cushions appropriately Head: normocephalic, atraumatic Eyes: JONATHON, no icterus Cardio: RRR, no murmurs, rubs, or gallops Respiratory: CTAB, no wheezing, rhonchi, rales Abd: normal bowel sounds, no guarding or rigidity Extremities: no pedal edema, pulses equal bilaterally, warm Skin: warm, dry, intact - Patient Status Disposition: Home, Self-Care Condition: Good Functional capacity at discharge: uses cane/walker Overall status at discharge: patient is progressing back to baseline - Discharge Instructions Follow Up With: Juve Sarkar MD [Primary Care Provider] - - Diet and Activity Activity: ambulate only with your walker Diet: advance to your usual diet <Jourdan Head - Last Filed: 05/14/19 15:23> - NOTES TO OUTPATIENT PROVIDER Notes to Outpatient Provider: Patient observed for possible TIA-like symptoms. Increased Lipitor dosage to 80 mg daily. Follow-up outpatient with neurology and vascular surgery. Date of Encounter: 05/14/19 Time of Encounter: 13:30 - Discharge Diagnosis (1) Chest pain Status: Chronic Qualifiers: Chest pain type: unspecified Qualified Code(s): R07.9 - Chest pain, unspecified (2) Stroke-like symptoms Status: Acute (3) Increased white blood cell count Status: Acute Qualifiers: Leukocytosis type: unspecified Qualified Code(s): D72.829 - Elevated white blood cell count, unspecified (4) Hypokalemia Status: Acute (5) Diabetes mellitus Status: Chronic Qualifiers: Qualified Code(s): E11.9 - Type 2 diabetes mellitus without complications Hospital course: Ms. Hinton is a 53 year old female - Time Spent with Patient Total time spent providing and/or coordinating discharge services: Time spent: D/C greater than 8 hours after Admission (I had a [id number] evaluation with the patient greater than 8 hours after initial admission and patient was discharged after that.) Date of admission: 05/13/19 22:11 Primary care physician: Juve Sarkar MD Consults: 05/14/19 03:03 Consult to Physical Therapy [CONS] Routine Comment: Evaluate, develop and implement POC Reason for Consult: Presents for new stroke like symptoms including slurred speech, confusion, and aphasia. History of CVA with left sided deficits. Please evaluate and treat. Does patient have active BEDREST order?: No Is patient medically & hemodynamically stable?: Yes - Constitutional Vitals: Temp Pulse Resp BP Pulse Ox 98.0 F 70 16 143/82 90 05/14/19 11:11 05/14/19 13:00 05/14/19 11:11 05/14/19 13:00 05/14/19 11:11 - Attending Attestation I saw evaluated and examined this patient and reviewed objective data including labs and my medical decision-making was reviewed with the Resident Physician. I agree with the documented findings, disposition and discharge plan as described except to any changes set forth below. We independently had [id number] contact with the patient. Patient with a history of prior CVA on aspirin, Plavix and statin, was hospitalized here after presenting to the ER with symptoms of disorientation and slurred speech. She also has apparently had fallen multiple times yesterday. She was evaluated in the ER and then hospitalized for observation regarding possible TIA. She underwent workup in the ER which included CT of the head and CT angiogram of the head and neck. No acute stroke was identified. No acute stenosis or occlusion was identified. Patient has carotid artery stenosis and follows up with vascular surgery. She underwent MRI of the brain today which did not show any acute stroke. Patient has sequelae of prior infarcts in the right frontal and parietal lobes. Patient has been evaluated by speech, PT and OT and recommended no further therapy. She is back to her baseline and is stable to be discharged home. Her labs showed an elevated triglycerides level and elevated VLDL level. Will increase statin dosage. Also recommend better control of her blood sugars. Her A1c was 7.3%. She will be discharged today. Time spent on discharge: 5 min
--- NOTE | 2019-05-17 08:51 | Electrocardiograph Report ---
[address] [address] Test Date: 2019-05-13 Pat Name: Janet Hinton Department: EXAM8 Room: 2NE28 Gender: F Chief Technician X Ray: : 1965 Requested By: Sohail Kamara Order Number: [id number] Reading MD: Chris Wan Measurements Intervals [place] Rate: 86 P: 55 CA: 138 QRS: 58 QRSD: 95 T: 102 QT: 381 QTc: 456 Interpretive Statements Sinus rhythm Nonspecific T abnormalities, lateral leads Electronically Signed On 05-17-2019 8:50:08 EDT by Chris Wan
== END 2019-05-14 16:40 | disposition home or self-care (01) ==
LOC: 2NENU 18:10 → EMEROOARM 18:10 → 2NENU 22:48
PROVIDERS: ADMIT Family Medicine; ATTEND Family Medicine

== ENCOUNTER 2020-07-08 23:23 | Observation (INO) ==
[2020-07-08] MEDS ORDERED: Isovue-370 500 ML BOTTLE IVP ONE (23:41)
[2020-07-08 23:51] LABS: Mean Corpuscular HGB Conc 32.4 g/dL (31.6-35.5); Mean Corpuscular Hemoglobin 29.6 pg (28.0-33.3); Mean Corpuscular Volume 91.4 fL (83.0-100.0); Mean Platelet Volume 9.8 fL (9.4-12.4); Platelet Count 387 K/mcL (140-400); Red Blood Count 4.05 M/mcL (3.82-4.97); Red Cell Distribution Width 14.4 % (11.5-14.5); White Blood Count 9.1 K/mcL (4.3-11.1)
[2020-07-08 23:58] LABS: INR 1.1; Prothrombin Time 12.3 Seconds (9.4-12.1)
[2020-07-09 00:07] LABS: Alanine Aminotransferase 20 Units/L (7-52); Albumin 3.9 g/dL (3.5-5.7); Albumin/Globulin Ratio 1.3 (1.1-2.2); Alkaline Phosphatase 58 Units/L (34-104); Aspartate Amino Transferase 23 Units/L (13-39); BUN/Creatinine Ratio 16 (6-26); Bilirubin,Total 0.3 mg/dL (0.3-1.0); Blood Urea Nitrogen 26 mg/dL (6-20); Calcium 9.4 mg/dL (8.6-10.3); Carbon Dioxide 25 mEq/L (23-29); Chloride 106 mEq/L (98-107); Ethanol < 10 mg/dL (Less than 10); Glucose 67 mg/dL (70-105); Osmolality,Calculated 289 (280-300); Potassium 4.2 mEq/L (3.5-5.1); Sodium 138 mEq/L (136-145); Total Protein 6.9 g/dL (6.4-8.9); eGFR For African Americans 41 (> 60); eGFR For Non-African Americans 34 (> 60)
[2020-07-09 00:09] LABS: Troponin I < 0.03 ng/mL (< 0.04)
[2020-07-09] MEDS ORDERED: 0.9 % Sodium Chloride 1,000 ML ONE (00:33)
[2020-07-09] MEDS ORDERED: Naloxone 0.4 MG/ML INJ IVP PRN (01:27)
[2020-07-09] MEDS ORDERED: 0.9 % Sodium Chloride 1,000 ML IVC ONE (01:29)
[2020-07-09 01:45] LABS: Amphetamine Screen,Urine Negative ng/mL (Cutoff=1000); Barbiturate Screen,Urine Negative ng/mL (Cutoff=200); Benzodiazepines Screen,Urine Negative ng/mL (Cutoff=200); Cannabinoid Screen,Urine Negative ng/mL (Cutoff = 50); Cocaine Screen,Urine Negative ng/mL (Cutoff= 300); Opiate Screen,Urine Negative ng/mL (Cutoff=300); Phencyclidine Screen,Urine Negative ng/mL (Cutoff=25)
[2020-07-09 03:49] LABS: Hematocrit 37.2 % (35.3-44.9); Hemoglobin 11.9 g/dL (11.5-15.4); Mean Corpuscular Hemoglobin 29.2 pg (28.0-33.3); Mean Corpuscular Volume 91.2 fL (83.0-100.0); Platelet Count 370 K/mcL (140-400); Red Blood Count 4.08 M/mcL (3.82-4.97); Red Cell Distribution Width 14.6 % (11.5-14.5); White Blood Count 10.8 K/mcL (4.3-11.1)
[2020-07-09 04:05] LABS: Calcium 9.2 mg/dL (8.6-10.3); Magnesium 1.9 mg/dL (1.6-2.6); Phosphorous 4.1 mg/dL (2.7-4.5); Potassium 4.8 mEq/L (3.5-5.1)
[2020-07-09] MEDS ORDERED: *HR* Dextrose 50 % in Water (Vial) 50 ML VIAL IVP PRN (05:59)
[2020-07-09] MEDS ORDERED: Dextrose Gel 15 GM/37.5 ML TUBE PO PRN ×2 (05:59)
[2020-07-09] MEDS ORDERED: D5% in Water 1,000 ML IVC PRN (05:59)
[2020-07-09] MEDS: Insulin LISPRO 300 UNITS/3 ML VIAL SQ SCH ×3 (07:19→16:46)
[2020-07-09] MEDS: Levothyroxine 25 MCG TABLET PO SCH (07:19)
[2020-07-09] MEDS: Aspirin Enteric Coated 81 MG Tablet PO SCH (09:08)
[2020-07-09] MEDS: *HR* Heparin 5,000 UNIT/ML VIAL SQ SCH ×2 (16:51→21:16)
[2020-07-09] MEDS ORDERED: Insulin LISPRO 300 UNITS/3 ML VIAL SQ SCH (21:00)
[2020-07-10 02:50] LABS: BUN/Creatinine Ratio 21 (6-26); Blood Urea Nitrogen 19 mg/dL (6-20); Calcium 9.2 mg/dL (8.6-10.3); Carbon Dioxide 23 mEq/L (23-29); Chloride 105 mEq/L (98-107); Glucose 124 mg/dL (70-105); Osmolality,Calculated 292 (280-300); Potassium 4.1 mEq/L (3.5-5.1); Sodium 139 mEq/L (136-145); eGFR For African Americans > 60 (> 60); eGFR For Non-African Americans > 60 (> 60)
[2020-07-10] MEDS: *HR* Heparin 5,000 UNIT/ML VIAL SQ SCH (06:18)
[2020-07-10] MEDS: Levothyroxine 25 MCG TABLET PO SCH (06:18)
[2020-07-10] MEDS: Insulin LISPRO 300 UNITS/3 ML VIAL SQ SCH ×2 (08:06→11:54)
[2020-07-10] MEDS: Aspirin Enteric Coated 81 MG Tablet PO SCH (08:30)
[2020-07-10] MEDS ORDERED: tiZANidine 4 MG TABLET PO PRN (10:24)
[2020-07-10 11:09] VITALS: BP 146/71
[2020-07-10] MEDS ORDERED: lisinopriL 10 MG TABLET PO SCH (18:00)
[2020-07-11] MEDS ORDERED: Loratadine 10 MG TABLET PO SCH (09:00)
[2020-07-11] MEDS ORDERED: Cyanocobalamin (B-12) 1,000 MCG TABLET PO SCH (09:00)
[2020-07-13] MEDS ORDERED: Ergocalciferol (VIT D2) 50,000 UNIT (1.25MG) CAP PO SCH (09:00)
== END 2020-07-10 15:13 | disposition home or self-care (01) ==
LOC: 3BNU 23:23 → EMEROOARM 23:23 → 3BNU 07-09 01:45
PROVIDERS: ADMIT Internal Medicine; ATTEND Internal Medicine